=== PATIENT | male | born 1960 | race Caucasian/White ===

== ENCOUNTER 2020-01-30 19:21 | Inpatient (IN) ==
[2020-01-30] MEDS ORDERED: 0.9 % Sodium Chloride 1,000 ML IVC ONE ×2 (19:55→20:40)
[2020-01-30 20:27] LABS: Basophils # 0.1 K/mcL (0.0-0.2); Basophils % 0.4 %; Eosinophils % 0.1 %; Hematocrit 53.4 % (37.5-50.1); Immature Granulocytes % 0.5 % (0-4); Lymphocytes % 7.8 %; Mean Corpuscular HGB Conc 33.7 g/dL (31.6-35.5); Mean Corpuscular Volume 82.9 fL (83.0-100.0); Mean Platelet Volume 11.1 fL (9.4-12.4); Monocytes # 2.3 K/mcL (0.0-1.3); Monocytes % 18.5 %; Platelet Count 502 K/mcL (140-400); Red Blood Count 6.44 M/mcL (4.19-5.50); Red Cell Distribution Width 13.9 % (11.5-14.5); Segmented Neutrophils % 72.7 %; White Blood Count 12.6 K/mcL (4.3-11.1)
[2020-01-30 20:29] LABS: Neutrophils # 9.2 K/mcL (1.6-8.9)
[2020-01-30] MEDS ORDERED: cefTRIAXone 1,000 MG in Water for inj. (sterile) 10 ML IVP ONE (20:29)
[2020-01-30] MEDS ORDERED: Dexamethasone 4 MG/ML VIAL IVP STA (20:29)
[2020-01-30] MEDS ORDERED: Azithromycin 500 MG in 0.9 % Sodium Chloride 250 ML IVPB ONE (20:29)
[2020-01-30 20:33] LABS: INR 2.2; Prothrombin Time 24.5 Seconds (9.4-12.1)
[2020-01-30 20:35] LABS: Activated Partial Thrombo Time 39.7 Seconds (26.0-36.0)
[2020-01-30 20:44] LABS: Platelet Estimate Increased (Normal)
[2020-01-30 21:11] LABS: Alanine Aminotransferase 89 Units/L (7-52); Albumin 3.6 g/dL (3.5-5.7); Albumin/Globulin Ratio 0.9 (1.1-2.2); Alkaline Phosphatase 76 Units/L (34-104); Aspartate Amino Transferase 135 Units/L (13-39); BUN/Creatinine Ratio 13 (6-26); Bilirubin,Direct 0.2 mg/dL (0.0-0.2); Bilirubin,Indirect 0.3 mg/dL (0.0-1.0); Bilirubin,Total 0.5 mg/dL (0.3-1.0); Blood Urea Nitrogen 24 mg/dL (6-20); C-Reactive Protein > 300 mg/L (Less than 10); Carbon Dioxide 17 mEq/L (23-29); Chloride 93 mEq/L (98-107); Ferritin 1061 ng/mL (20-250); Globulin 3.8 g/dL (2.4-3.5); Glucose 155 mg/dL (70-105); Lactate Dehydrogenase 667 Units/L (140-271); Magnesium 2.6 mg/dL (1.6-2.6); Osmolality,Calculated 275 (280-300); Phosphorous 2.7 mg/dL (2.7-4.5); Potassium 3.6 mEq/L (3.5-5.1); Sodium 129 mEq/L (136-145); Total Protein 7.4 g/dL (6.4-8.9); Troponin I 0.03 ng/mL (< 0.04); eGFR For African Americans 46 (> 60); eGFR For Non-African Americans 38 (> 60)
[2020-01-30] MEDS ORDERED: Naloxone 0.4 MG/ML INJ IVP PRN (23:14)
[2020-01-30] MEDS ORDERED: Ondansetron 4 MG/2 ML VIAL IVP PRN (23:14)
[2020-01-30] MEDS ORDERED: Acetaminophen 325 MG TABLET PO PRN (23:14)
[2020-01-31 00:36] LABS: Albumin 3.1 g/dL (3.5-5.7); Albumin/Globulin Ratio 0.9 (1.1-2.2); Bilirubin,Total 0.4 mg/dL (0.3-1.0); Calcium 8.8 mg/dL (8.6-10.3); Globulin 3.3 g/dL (2.4-3.5); Potassium 3.3 mEq/L (3.5-5.1); Total Protein 6.4 g/dL (6.4-8.9)
[2020-01-31] MEDS ORDERED: 0.9 % Sodium Chloride 1,000 ML IVC ONE (07:51)
[2020-01-31] MEDS: Dexamethasone 4 MG/ML VIAL IVP SCH (08:34)
[2020-01-31] MEDS: Azithromycin 500 MG in D5% in Water 250 ML IVPB SCH (08:35)
[2020-01-31] MEDS ORDERED: cefTRIAXone 1,000 MG in Water for inj. (sterile) 10 ML IVP SCH (09:00)
[2020-01-31 09:05] LABS: Basophils % 0.3 %; Hematocrit 49.5 % (37.5-50.1); Immature Granulocytes % 0.4 % (0-4); Lymphocytes # 0.6 K/mcL (0.6-4.6); Lymphocytes % 8.1 %; Mean Corpuscular HGB Conc 32.5 g/dL (31.6-35.5); Mean Corpuscular Hemoglobin 27.6 pg (28.0-33.3); Mean Corpuscular Volume 84.8 fL (83.0-100.0); Mean Platelet Volume 11.5 fL (9.4-12.4); Monocytes # 0.6 K/mcL (0.0-1.3); Monocytes % 8.2 %; Neutrophils # 6.3 K/mcL (1.6-8.9); Platelet Count 528 K/mcL (140-400); Red Blood Count 5.84 M/mcL (4.19-5.50); Red Cell Distribution Width 13.7 % (11.5-14.5); White Blood Count 7.6 K/mcL (4.3-11.1)
[2020-01-31 09:10] LABS: Hemoglobin 16.1 g/dL (12.9-16.9)
[2020-01-31 09:25] LABS: Magnesium 2.8 mg/dL (1.6-2.6); Troponin I 0.06 ng/mL (< 0.04)
[2020-01-31] MEDS: Cefepime HCl 2,000 MG in 0.9 % Sodium Chloride Mini Bag 100 ML IVPB SCH ×3 (10:08→23:22)
[2020-01-31] MEDS ORDERED: Dextrose Gel 15 GM/37.5 ML TUBE PO PRN ×2 (12:54)
[2020-01-31] MEDS ORDERED: D5% in Water 1,000 ML IVC PRN (12:54)
[2020-01-31] MEDS ORDERED: *HR* Dextrose 50 % in Water (Vial) 50 ML VIAL IVP PRN (12:54)
[2020-01-31] MEDS: Ringers Solution, Lactated 1,000 ML IVC SCH ×2 (13:11→20:43)
[2020-01-31 17:12] LABS: Bilirubin,Urine Negative (Negative); Blood,Urine Large (Negative); Clarity,Urine Clear (Clear); Color,Urine Light-Yellow (Yellow); Glucose,Urine (UA) >=1000 mg/dL (Normal); Ketones,Urine 20 mg/dL (Negative); Leukocyte Esterase,Urine Negative (Negative); Mucus,Urine Few per lpf (None-Few); Nitrite,Urine Negative (Negative); Protein,Urine 100 mg/dL (Neg-Trace); RBC,Urine 0-3 per hpf (0-3); Specific Gravity,Urine 1.022 (1.010-1.025); Urobilinogen,Urine Normal (Normal)
[2020-01-31] MEDS: Insulin LISPRO 300 UNITS/3 ML VIAL SQ SCH ×2 (17:12→20:46)
[2020-01-31] MEDS: *HR* Heparin 5,000 UNIT/ML VIAL SQ SCH (17:18)
[2020-01-31 19:04] LABS: BUN/Creatinine Ratio 24 (6-26); Blood Urea Nitrogen 33 mg/dL (6-20); Calcium 8.8 mg/dL (8.6-10.3); Carbon Dioxide 12 mEq/L (23-29); Chloride 104 mEq/L (98-107); Glucose 278 mg/dL (70-105); Osmolality,Calculated 293 (280-300); Potassium 3.7 mEq/L (3.5-5.1); Sodium 133 mEq/L (136-145); eGFR For African Americans > 60 (> 60); eGFR For Non-African Americans 53 (> 60)
[2020-01-31 19:05] LABS: Estimated Average Glucose 220 mg/dl; Hemoglobin A1C 9.3 %
[2020-01-31] MEDS: gemfibroziL 600 MG TABLET PO SCH (20:42)
[2020-02-01 01:05] LABS: Hematocrit 48.2 % (37.5-50.1); Hemoglobin 15.7 g/dL (12.9-16.9); Mean Corpuscular HGB Conc 32.6 g/dL (31.6-35.5); Mean Corpuscular Hemoglobin 27.4 pg (28.0-33.3); Mean Corpuscular Volume 84.3 fL (83.0-100.0); Mean Platelet Volume 11.6 fL (9.4-12.4); Platelet Count 375 K/mcL (140-400); Red Blood Count 5.72 M/mcL (4.19-5.50); Red Cell Distribution Width 13.8 % (11.5-14.5); White Blood Count 8.8 K/mcL (4.3-11.1)
[2020-02-01 01:18] LABS: BUN/Creatinine Ratio 26 (6-26); Blood Urea Nitrogen 34 mg/dL (6-20); Calcium 9.1 mg/dL (8.6-10.3); Carbon Dioxide 17 mEq/L (23-29); Chloride 101 mEq/L (98-107); Glucose 240 mg/dL (70-105); Magnesium 2.4 mg/dL (1.6-2.6); Osmolality,Calculated 287 (280-300); Potassium 3.3 mEq/L (3.5-5.1); Sodium 131 mEq/L (136-145); eGFR For African Americans > 60 (> 60); eGFR For Non-African Americans 56 (> 60)
[2020-02-01] MEDS: *HR* Heparin 5,000 UNIT/ML VIAL SQ SCH ×2 (04:51→17:19)
[2020-02-01] MEDS: Ringers Solution, Lactated 1,000 ML IVC SCH ×2 (05:27→17:19)
[2020-02-01] MEDS: Insulin LISPRO 300 UNITS/3 ML VIAL SQ SCH ×4 (08:43→21:39)
[2020-02-01] MEDS: Azithromycin 500 MG in D5% in Water 250 ML IVPB SCH (08:45)
[2020-02-01] MEDS: Cefepime HCl 2,000 MG in 0.9 % Sodium Chloride Mini Bag 100 ML IVPB SCH ×2 (08:45→17:17)
[2020-02-01] MEDS: predniSONE 5 MG TABLET PO SCH (08:46)
[2020-02-01] MEDS: gemfibroziL 600 MG TABLET PO SCH ×2 (08:46→21:38)
[2020-02-01] MEDS: Aspirin Enteric Coated 81 MG Tablet PO SCH (08:46)
[2020-02-01] MEDS: Dexamethasone 4 MG/ML VIAL IVP SCH (08:47)
[2020-02-01] MEDS ORDERED: Sulfamethoxazole/Trimeth SS 1 TAB PO SCH (09:00)
[2020-02-01] MEDS ORDERED: Sodium Bicarbonate 150 MEQ in Water for inj. (sterile) 1,000 ML IVC SCH (12:30)
[2020-02-02] MEDS: Cefepime HCl 2,000 MG in 0.9 % Sodium Chloride Mini Bag 100 ML IVPB SCH (01:14)
[2020-02-02] MEDS: Ringers Solution, Lactated 1,000 ML IVC SCH (03:20)
[2020-02-02] MEDS: *HR* Heparin 5,000 UNIT/ML VIAL SQ SCH (05:01)
[2020-02-02 05:42] LABS: Basophils % 0.3 %; Hematocrit 45.9 % (37.5-50.1); Hemoglobin 15.6 g/dL (12.9-16.9); Immature Granulocytes % 0.5 % (0-4); Lymphocytes # 1.1 K/mcL (0.6-4.6); Lymphocytes % 10.1 %; Mean Corpuscular Hemoglobin 27.1 pg (28.0-33.3); Mean Corpuscular Volume 79.8 fL (83.0-100.0); Mean Platelet Volume 11.4 fL (9.4-12.4); Monocytes # 1.4 K/mcL (0.0-1.3); Monocytes % 12.6 %; Neutrophils # 8.5 K/mcL (1.6-8.9); Platelet Count 625 K/mcL (140-400); Red Blood Count 5.75 M/mcL (4.19-5.50); Red Cell Distribution Width 13.6 % (11.5-14.5); Segmented Neutrophils % 76.5 %; White Blood Count 11.1 K/mcL (4.3-11.1)
[2020-02-02 05:50] LABS: BUN/Creatinine Ratio 29 (6-26); Blood Urea Nitrogen 31 mg/dL (6-20); Calcium 9.6 mg/dL (8.6-10.3); Carbon Dioxide 24 mEq/L (23-29); Chloride 102 mEq/L (98-107); Glucose 231 mg/dL (70-105); Osmolality,Calculated 296 (280-300); Potassium 3.4 mEq/L (3.5-5.1); Sodium 136 mEq/L (136-145); eGFR For African Americans > 60 (> 60); eGFR For Non-African Americans > 60 (> 60)
[2020-02-02 06:27] LABS: Platelet Estimate Increased (Normal)
[2020-02-02 06:42] LABS: Troponin I 0.03 ng/mL (< 0.04)
[2020-02-02 08:23] VITALS: BP 133/62
[2020-02-02] MEDS: Dexamethasone 4 MG/ML VIAL IVP SCH (08:43)
[2020-02-02] MEDS: predniSONE 5 MG TABLET PO SCH (08:44)
[2020-02-02] MEDS: gemfibroziL 600 MG TABLET PO SCH (08:44)
[2020-02-02] MEDS: Insulin LISPRO 300 UNITS/3 ML VIAL SQ SCH (08:47)
[2020-02-02] MEDS: Aspirin Enteric Coated 81 MG Tablet PO SCH (08:48)
[2020-02-02] MEDS ORDERED: Cefdinir 300 MG CAPSULE PO SCH (09:00)
[2020-02-02] MEDS ORDERED: Sulfamethoxazole/Trimeth SS 1 TAB PO SCH (09:00)
== END 2020-02-02 12:17 | disposition home or self-care (01) | DRG 871 ==
LOC: CDU 19:21 → EMEROOARM 19:21 → SUATTDRO 21:36 → CDU 22:38
PROVIDERS: ADMIT Internal Medicine; ATTEND Internal Medicine